=== PATIENT | male | born 1990 | race African-American/Black ===

== ENCOUNTER 2016-11-01 01:41 | Emergency (ER) | payer OTHER ==
[2016-11-01 01:54] VITALS: BP 120/64; PULSE 56; TEMP 98.1; BMI 22.9
--- NOTE | 2016-11-01 06:09 | PDOC ---
History of Present Illness - General Chief Complaint: Alcohol intoxication Stated Complaint: INTOX Time Seen by Provider: 11/01/16 01:48 History Source: Patient Exam Limitations: No Limitations - History of Present Illness Severity: mild Modifying Factors: worse with: cold therapy, eating, immobilization, medication , movement, rest, other Associated Symptoms: denies: denies symptoms, chest pain, cough, diaphoresis, fever/chills, headaches, loss of appetite, malaise, nausea/vomiting, rash, seizure, shortness of breath, syncope, weakness, other Asa Contraindications(Core Measure): No: Allergy, Other, Active Blding w/i 24 hrs., Plavix, Receiving Warfarin Beta Jose Contraindications(Core Measure): No: Not Prescribed, Allergy, Bradycardia (HR <60bpm), Advanced Heart Block, Pacemaker, Other Beta Jose Given by EMS(Core Measure): No Beta Jose Taken at Home(Core Measure): No Beta Jose Not Indicated at this Time(Core Measure): No Past History - Past Medical History Other medical history: denies - Immunization History Immunization Up to Date: Yes - Psycho/Social/Smoking Cessation Hx Anxiety: No Suicidal Ideation: No Smoking History: Unknown if ever smoked Number of Cigarettes Smoked Daily: 0 Cigars Per Day: 0 Information on smoking cessation initiated: No Hx Alcohol Use: No Drug/Substance Use Hx: No *Physical Exam - Vital Signs Last Vital Signs Temp Pulse Resp BP Pulse Ox 98.1 F 56 L 20 120/64 100 11/01/16 01:45 11/01/16 01:45 11/01/16 01:45 11/01/16 01:45 11/01/16 01:45 - Physical Exam General Appearance: Yes: Intoxicated HEENT: positive: EOMI, BENSON, Normal ENT Inspection, Normal Voice, Symmetrical Neck: positive: Trachea midline, Normal Thyroid, Rigid Respiratory/Chest: positive: Lungs Clear, Normal Breath Sounds. negative: Chest Tender, Respiratory Distress, Accessory Muscle Use, Crackles, Rales, Wheezing, Hyperresonant, Dullness Cardiovascular: positive: Regular Rhythm, Regular Rate, S1, S2 Neurologic: positive: Respond to painful stimul, Disoriented *DC/Admit/Observation/Transfer Diagnosis at time of Disposition: Intoxication - Discharge Dispostion Disposition: HOME Condition at time of disposition: Stable Admit: No
== END 2016-11-01 06:22 | disposition home or self-care (01) ==
LOC: JER 01:41
DX: F10.120 Alcohol abuse with intoxication, uncomplicated (principal); Y90.9 Presence of alcohol in blood, level not specified
CPT/HCPCS: 99281-25; 99283-25